=== PATIENT | male | born 1990 | race Caucasian/White ===

== ENCOUNTER 2020-05-23 09:37 | Emergency (ER) | payer OTHER ==
[2020-05-23] MEDS ORDERED: SOMA350 MG PO (10:54)
[2020-05-23] MEDS ORDERED: MOT600 PO (10:54)
[2020-05-23 11:16] VITALS: BP 112/75
== END 2020-05-23 11:16 | disposition home or self-care (01) ==
LOC: ED 09:37
DX: S39.012A Strain of muscle, fascia and tendon of lower back, initial encounter (principal); J45.909 Unspecified asthma, uncomplicated; X50.0XXA Overexertion from strenuous movement or load, initial encounter; Y93.89 Activity, other specified; Y92.89 Other specified places as the place of occurrence of the external cause; Y99.8 Other external cause status